=== PATIENT | male | born 1935 | race Caucasian/White ===

== ENCOUNTER 2017-10-18 10:16 | Observation (INO) | payer OTHER ==
[~2017-10-18] VITALS: Ht 172.7 cm; Wt 83.0 kg
[2017-10-18 10:20] VITALS: BP 172/72
[2017-10-18] MEDS ORDERED: LIPITOR10 MG PO (10:25)
[2017-10-18] MEDS ORDERED: LEVOTHYROXINE100 MC1 PO (10:25)
[2017-10-18] MEDS ORDERED: ATENOLOL-CHLOR1 EAC2 PO (10:26)
[2017-10-18] MEDS ORDERED: MEDROLDOSEPACK PO (10:27)
[2017-10-18 10:43] LABS: ABSOLUTE BASOPHILS 0.1 thou/uL (0.0-0.2); ABSOLUTE EOSINOPHILS 0.1 thou/uL (0.0-0.7); ABSOLUTE LYMPHOCYTES 3.1 thou/uL (0.8-5.3); ABSOLUTE NEUTROPHILS 7.4 thou/uL (1.6-8.1); BASOPHILS 0.6 %; EOSINOPHILS 0.7 %; HEMATOCRIT 44.3 % (42.0-52.0); HEMOGLOBIN 14.6 gm/dL (14.0-18.0); LYMPHOCYTES 26.3 %; MCH 29.8 pg (26.0-34.0); MCV 90.2 fL (80.0-100.0); MPV 8.8 fl. (7.2-11.1); NUCLEATED RBCS 0 /100WBC; PLATELET COUNT* 240 thou/uL (150-400); POLYS 63.4 %; RBC 4.91 mil/uL (4.50-6.00); RDW-CV 13.7 % (10.5-14.5); WBC 11.6 thou/uL (4.0-11.0)
[2017-10-18 10:50] LABS: URINE BILIRUBIN NEGATIVE (Negative); URINE BLOOD NEGATIVE (Negative); URINE CLARITY CLEAR; URINE COLOR YELLOW; URINE GLUCOSE-RANDOM NEGATIVE (Negative); URINE KETONES NEGATIVE (Negative); URINE LEUKOCYTES-REFLEX NEGATIVE (Negative); URINE NITRITE-REFLEX NEGATIVE (Negative); URINE PROTEIN NEGATIVE (Negative); URINE SPECIFIC GRAVITY 1.015 (1.005-1.030); URINE UROBILINOGEN 0.2 E.U./dl (0.2-1.0)
[2017-10-18 10:53] LABS: INR 1.1
[2017-10-18 10:54] LABS: ANION GAP 3 mmol/L (7-16); BUN 28 mg/dL (7-18); CALCIUM 8.4 mg/dL (8.5-10.1); CHLORIDE 101 mmol/L (98-107); CO2 35 mmol/L (21-32); CREATININE 1.4 mg/dL (0.6-1.3); GLUCOSE 114 mg/dL (70-99); POTASSIUM 3.5 mmol/L (3.5-5.1); SODIUM 139 mmol/L (136-145)
[2017-10-18 11:10] LABS: ALBUMIN 3.6 g/dL (3.4-5.0); ALKALINE PHOSPHATASE 56 U/L (46-116); NT-PRO BRAIN NAT PEPTIDE 415 pg/mL (<300); SGOT 18 U/L (15-37); SGPT 36 U/L (30-65); TOTAL BILIRUBIN 0.8 mg/dL (<0.1-1.0); TOTAL PROTEIN 7.3 g/dL (6.4-8.2); TROPONIN-I LEVEL <0.06 ng/mL (<0.06)
[2017-10-18 12:10] VITALS: BP 121/45
--- NOTE | 2017-10-18 16:00 | NUR ---
VSS, ASSUMED CARE OF THE PT FROM ED. ASSESSMENT PERFORMED AND CHARTED, FALL PRECAUTIONS IN PLACE AND CALL LIGHT IN REACH, PT IS ON RA AND IS TRACING SR/SB ON THE MONITOR, PT IS A&O4 AND UP STAND BY. PT DENIES ANY PAIN AND HIS GOAL IS TO NOT HAVE ANYMORE DIZZYS, PT IS ORTHO STAT NEG. WILL FOLLOW WITH PLAN OF CARE AND HOURLY ROUNDS COMPLETED AT THIS TIME.
[2017-10-18 16:08] VITALS: BP 144/60
--- NOTE | 2017-10-18 16:24 | EKG ---
[place] [address] ELECTROCARDIOGRAM REPORT Name: BRIGIDA LOUIS Room: [address] ADM IN .R.#: [id number] Admission: 10/18/17 Attend Phys: Maikel Martin MD Discharge: Date of : 37 Report #: [id number] THIS REPORT FOR: //name// [facility] ED Test Date: 2017-10-18 Test Time: 10:23:11 Pat Name: BRIGIDA LOUIS Department: Room: [facility] Gender: Recreation Activities Coordinator: Mamie WHITEHEAD : 1935 Requested By: Everette Mccallum Order Number: [id number] MD: Mayur Colorado Measurements Intervals [place] Rate: 54 P: 34 SC: 169 QRS: 15 QRSD: 100 T: 23 QT: 436 QTc: 414 Interpretive Statements Sinus bradycardia Compared to ECG 06/09/2007 17:28:15 No significant changes Electronically Signed On 10-18-2017 16:23:48 CDT by Mayur Colorado [email or web address] <ELECTRONICALLY SIGNED> By: Mayur Colorado MD, [facility] 10/18/17 1623 1023 1023 Mayur Colorado MD, [facility] /EPI
--- NOTE | 2017-10-18 17:03 | 2DMMODE ---
[place] [address] 2 D/M-MODE ECHOCARDIOGRAM Name: BRIGIDA LOUIS Room: [address] [place] [facility]#: [id number] Admission: 10/18/17 Attend Phys: Maikel Martin, Discharge: Date of : 37 Date of Service: 10/18/17 1703 Report #: [id number] THIS REPORT FOR: //name// APPROVED REPORT Study performed: 10/18/2017 15:26:11 EXAM: Comprehensive 2D, Doppler, and color-flow Echocardiogram Patient Location: In-Patient Room #: [facility] BSA: 1.97 HR: 54 bpm BP: 121/45 mmHg Other Information Study Quality: Good Indications Dizziness and Vertigo 2D Dimensions LVEF(%): 72.24 (>50%) IVSd: 10.40 (7-11mm) LVOT Diam: 20.49 (18-24mm) LVDd: 44.95 mm PWd: 11.81 (7-11mm) Ascending Ao: 27.51 (22-36mm) LVDs: 26.42 (25-40mm) Aortic Root: 24.19 mm Perry's LVEF: 72.24 % Volumes Left Atrial Volume (Systole) LA ESV Index: 21.70 mL/m2 Aortic Valve AoV Peak Demetrio.: 1.31 m/s AO Peak Gr.: 6.84 mmHg LVOT Max P.86 mmHg AO Mean Gr.: 3.70 mmHg LVOT Mean P.71 mmHg LVOT Max V: 0.98 m/s AO V2 VTI: 29.77 cm LVOT Mean V: 0.60 m/s REYNOLD (VTI): 2.96 cm2 LVOT V1 VTI: 26.74 cm Mitral Valve E/A Ratio: 0.91 MV Decel. Time: 198.91 [place] [address] 2 D/M-MODE ECHOCARDIOGRAM Name: BRIGIDA LOUIS Room: [address] [place] .R.#: [id number] Admission: 10/18/17 Attend Phys: Maikel Martin, Discharge: Date of : 37 Date of Service: 10/18/17 1703 Report #: [id number] MV E Max Demetrio.: 0.91 m/s MV PHT: 57.68 ms MVA (PHT): 3.81 cm2 TDI E/Lateral E': 10.11 E/Medial E': 11.38 Medial E' Demetrio.: 0.08 m/s Lateral E' Demetrio.: 0.09 m/s Pulmonary Valve PV Peak Demetrio.: 0.91 m/s PV Peak Gr.: 3.33 mmHg Tricuspid Valve TR Peak Gr.: 25.60 mmHg RVSP: 30.60 mmHg Left Ventricle The left ventricle is normal size. There is normal LV segmental wall motion. There is normal left ventricular wall thickness. Left ventricular systolic function is normal. LVEF is 55-60%. Transmitral Doppler flow pattern suggests impaired LV relaxation. Right Ventricle The right ventricle is normal size. The right ventricular systolic function is normal. Atria The left atrium size is normal. The right atrium size is normal. Aortic Valve The aortic valve is normal in structure. No aortic regurgitation is present. There is no aortic valvular stenosis. Mitral Valve The mitral valve is normal in structure. Mild mitral regurgitation. No evidence of mitral valve stenosis. Tricuspid Valve The tricuspid valve is normal in structure. Mild tricuspid regurgitation. The RVSP is _30.6 mmHg. Pulmonic Valve The pulmonary valve is normal in structure. There is no pulmonic valvular regurgitation[place] [address] 2 D/M-MODE ECHOCARDIOGRAM Name: BRIGIDA LOUIS Room: [address] [place] .#: [id number] Admission: 10/18/17 Attend Phys: Maikel Martin, Discharge: Date of : 37 Date of Service: 10/18/17 1703 Report #: [id number] The aortic root is normal in size. IVC is normal in size and collapses with >50% inspiration Pericardium There is no pericardial effusion. <Conclusion> The left ventricle is normal size. There is normal left ventricular wall thickness. Left ventricular systolic function is normal. LVEF is 55-60%. Transmitral Doppler flow pattern suggests impaired LV relaxation. Mild mitral regurgitation. Mild tricuspid regurgitation. The RVSP is _30.6 mmHg. IVC is normal in size and collapses with >50% inspiration <ELECTRONICALLY SIGNED> By: Jason Mcrae MD, FACC 10/18/17 170 02 02 Jason Mcrae MD, FACC /INF
[2017-10-18 20:00] VITALS: BP 125/51
[2017-10-19] VITALS (7 sets, daily range): BP systolic 118–135; BP diastolic 41–54
--- NOTE | 2017-10-19 05:26 | NUR ---
PT CARE ASSUMED AFTER REPORT. ASSESSMENT COMPLETE. SR ON MONITOR. DENIES PAIN. DENIES DIZZINESS. IVF INFUSING. UP AD BRIANA WITH STEADY GAIT. CALL LIGHT IN REACH. BED IN LOWEST POSITION. PROGRESSING TOWARDS GOALS.
[2017-10-19 11:00] LABS: CALCIUM 8.2 mg/dL (8.5-10.1); CREATININE 1.7 mg/dL (0.6-1.3); POTASSIUM 3.1 mmol/L (3.5-5.1)
[2017-10-19] MEDS ORDERED: ATENOLOL 50MG T50 M1 PO ×2 (13:50→13:52)
--- NOTE | 2017-10-19 14:12 | NUR ---
I HAVE REVIEWED STUDENT'S CHARTING.
--- NOTE | 2017-10-19 16:54 | NUR ---
CM ASSESSMENT: Pt is A&O. Resides at home with his . Independent with ADLs. Supportive family that is involved in POC. No DME. No hx of HH or SNF. Anticipate dc to home today, awaiting cardiology to come sign off. No needs.
--- NOTE | 2017-11-01 17:05 | CON ---
[address] [address] CONSULTATION Name: BRIGIDA LOUIS Room: [address] Sandra Hurd#: [id number] Admission: 10/18/17 Attend Phys: Maikel Martin MD Discharge: 10/19/17 Date of : 37 Report #: [id number] THIS REPORT FOR: //name// CC: Maikel Tejeda DATE OF SERVICE: 10/19/2017 HISTORY OF PRESENT ILLNESS: This is an 82-year-old male patient who was evaluated by me for any neurological etiology for the patient's dizziness. He indicated that he had 2 episodes of dizziness. During both these episodes, he was fully conscious. He was standing and he felt dizzy and he sat down. He felt better with this dizziness. He does not know what his blood pressure was because his blood pressure cuff has broken and he did not take his blood pressure. He did not know what his pulse was. There was no associated tonic-clonic activity and the dizziness was moderately severe. REVIEW OF SYSTEMS: Indicate that this patient was seen by Cardiology and they found bradycardia in this patient and they are readjusting his medication. He does have a history of hypertension, back problem with epidural injections, bronchitis. He denies any prior history of stroke. He denies any headache associated with this. The history about some unsteadiness is confusing in this patient. He had told previously that he may have been unsteady; to me he is not sure. Presently, he is not complaining of any new eye, ENT, cardiac, respiratory, GI, , musculoskeletal, constitutional, dermatological, hematological, psychiatric or endocrine symptom associated with present symptomatology. He does have some baseline symptoms as described above in multiple systems. His 14-point review of system was otherwise noncontributory. PAST MEDICAL HISTORY: Negative for stroke. FAMILY HISTORY: Negative for early age stroke. SOCIAL HISTORY: He does not smoke. He has prior history of smoking and he does not drink alcohol. PHYSICAL EXAMINATION: NEUROLOGIC: Indicates he is alert, responsive and able to follow simple and complex command. His speech, concentration, fund of knowledge and memory is at his baseline. Cranial nerve examination 2-12 is unremarkable. His strength, sensation, reflexes and tone is symmetrical. There is no cerebellar sign. I could not look at the patient's fundus. There is no meningeal sign. There is no carotid bruit. GENERAL: He is moderately built individual who does not have any dysmorphic features of eyes, ears and face. His vision [place] [address] CONSULTATION Name: BRIGIDA LOUIS Room: [address] Sandra Hurd#: [id number] Admission: 10/18/17 Attend Phys: Maikel Martin MD Discharge: 10/19/17 Date of : 37 Report #: [id number] EXTREMITIES: His pulses are difficult to feel. He has no edema, cyanosis or jaundice. CARDIAC: Presently does not appear to be showing any definite abnormality. RESPIRATORY: No respiratory difficulty or rhonchi was noticed. VITAL SIGNS: Blood pressure is 133/54, respirations 18, pulse is 87, temperature is 99. LABORATORY DATA: When he came in, his white count was 11.6 and estimated GFR was 39 and his potassium was only 3.1. He did have a carotid Doppler and CT scan, which was mostly unremarkable. He indicates that he had another episode in 2006, which was a similar episode. IMPRESSION: It is unlikely that the patient's symptoms are neurological in origin. I think more likely etiology is cardiac, especially because he had bradycardia and because of the symptoms this patient had. He also had some other abnormality, which could have predisposed him for the symptoms like hypokalemia as well as what appeared to be renal dysfunction. I will defer the evaluation and management of that to yourself and Cardiology. RECOMMENDATION: I discussed the situation with the patient and discussed with him that it is unlikely there is any neurological etiology for his symptoms. He wants to go home. I told them that I will like to do an MRI and MRA just to make sure, especially because he had symptom in 2006. If that is also unremarkable, then neurologically, I do not have anything specific to add and further management will be by Cardiology and the hospitalist and I will defer to them. If the MRI is unremarkable, I do not think any neurological workup is needed and from neurological perspective, he can be dismissed whenever Cardiology and hospitalist think he is ready to be dismissed from their perspective. Final decision in that regard will be made by them but from my perspective after the MRI is done and if it is okay, no more further neurological workup is recommended and we will suggest working and following up on his systemic causes. <ELECTRONICALLY SIGNED> By: Chris Bullard MD 11/01/17 1705 170 15Chris Bullard MD /nt
== END 2017-10-19 19:19 | disposition home or self-care (01) ==
LOC: M.ERS 10:16 → M.TBA-ER 11:22 → M.2W 11:22
PROVIDERS: Family Medicine; ADMIT Internal Medicine
DX: R42 Dizziness and giddiness (principal); R00.1 Bradycardia, unspecified; R05 Cough; E86.0 Dehydration; E03.9 Hypothyroidism, unspecified; N17.9 Acute kidney failure, unspecified; I12.9 Hypertensive chronic kidney disease with stage 1 through stage 4 chronic kidney disease, or unspecified chronic kidney disease; N18.9 Chronic kidney disease, unspecified; Z87.891 Personal history of nicotine dependence

== ENCOUNTER 2019-09-11 06:53 | Emergency (ER) | payer OTHER ==
[~2019-09-11] VITALS: Ht 172.7 cm; Wt 83.5 kg
[~2019-09-11 06:53] MED LIST: ATENOLOL 50MG T50 M1 PO; ATENOLOL-CHLOR1 EAC2 PO; LEVOTHYROXINE100 MC1 PO; LIPITOR10 MG PO; MEDROLDOSEPACK PO
[2019-09-11] MEDS ORDERED: MECLIZINE HCL25 M1 PO (07:02)
[2019-09-11] MEDS ORDERED: NORVASC 2.5 MG2.5 M1 PO (07:02)
[2019-09-11 07:56] LABS: ABSOLUTE BASOPHILS 0.1 thou/uL (0.0-0.2); ABSOLUTE EOSINOPHILS 0.1 thou/uL (0.0-0.7); ABSOLUTE LYMPHOCYTES 2.1 thou/uL (0.8-5.3); ABSOLUTE MONOCYTES 0.8 thou/uL (0.0-1.2); ABSOLUTE NEUTROPHILS 4.7 thou/uL (1.6-8.1); BASOPHILS 0.7 %; EOSINOPHILS 1.9 %; HEMATOCRIT 44.4 % (42.0-52.0); HEMOGLOBIN 14.8 gm/dL (14.0-18.0); LYMPHOCYTES 27.2 %; MCH 30.1 pg (26.0-34.0); MCHC 33.4 g/dL (28.0-37.0); MCV 90.2 fL (80.0-100.0); MONOCYTES 10.3 %; MPV 9.3 fl. (7.2-11.1); NUCLEATED RBCS 0 /100WBC; PLATELET COUNT* 218 thou/uL (150-400); POLYS 59.9 %; RBC 4.92 mil/uL (4.50-6.00); RDW-CV 14.2 % (10.5-14.5); WBC 7.9 thou/uL (4.0-11.0)
[2019-09-11 08:10] LABS: CALCIUM 8.2 mg/dL (8.5-10.1); CREATININE 1.2 mg/dL (0.6-1.3); POTASSIUM 4.7 mmol/L (3.5-5.1)
[2019-09-11 08:12] LABS: APTT 29.9 Seconds (25.0-31.3); PROTIME 10.6 Seconds (9.20-11.50)
[2019-09-11 08:21] LABS: ALBUMIN 3.3 g/dL (3.4-5.0); TOTAL BILIRUBIN 0.7 mg/dL (<0.1-1.0); TOTAL PROTEIN 7.2 g/dL (6.4-8.2)
[2019-09-11 08:27] LABS: URINE BILIRUBIN NEGATIVE (Negative); URINE BLOOD NEGATIVE (Negative); URINE CLARITY CLEAR; URINE COLOR YELLOW; URINE GLUCOSE-RANDOM NEGATIVE (Negative); URINE KETONES NEGATIVE (Negative); URINE LEUKOCYTES-REFLEX NEGATIVE (Negative); URINE NITRITE-REFLEX NEGATIVE (Negative); URINE PROTEIN NEGATIVE (Negative); URINE SPECIFIC GRAVITY 1.025 (1.005-1.030); URINE UROBILINOGEN 0.2 E.U./dl (0.2-1.0)
[2019-09-11] MEDS ORDERED: TRANSDERM-SCOP1 EACH TRANSDERM (09:17)
[2019-09-11 09:37] VITALS: BP 132/64
--- NOTE | 2019-09-11 16:44 | EKG ---
[place] [address] ELECTROCARDIOGRAM REPORT Name: BRIGDIA LOUIS Room: [facility]#: [id number] Admission: 09/11/19 Attend Phys: Discharge: 09/11/19 Date of : 37 Date of Service: 09/11/19 0755 Report #: [id number] THIS REPORT FOR: //name// [facility] ED Test Date: 2019-09-11 Test Time: 07:55:07 Pat Name: BRIGIDA LOUIS Department: Room: Gender: Dryerman/Woman: [place] : 1935 Requested By: Everette Mccallum Order Number: [id number] MD: Mayur Colorado Measurements Intervals [place] Rate: 73 P: 43 NC: 158 QRS: 13 QRSD: 101 T: 36 QT: 412 QTc: 454 Interpretive Statements Sinus rhythm Multiple ventricular premature complexes Compared to ECG 10/18/2017 10:23:11 Ventricular premature complex(es) now present Sinus bradycardia no longer present Electronically Signed On 09-11-2019 16:43:25 DIRECTORY CARRIER by Mayur Colorado [email or web address] <ELECTRONICALLY SIGNED> By: Mayur [place] MD, FACC 09/11/19 1643 0755 0755 Mayur Colorado MD, [facility] /EPI
== END 2019-09-11 09:37 | disposition home or self-care (01) ==
LOC: M.ERS 06:53
PROVIDERS: Family Medicine
DX: R42 Dizziness and giddiness (principal); I10 Essential (primary) hypertension; Z98.890 Other specified postprocedural states

== ENCOUNTER 2020-07-18 09:07 | Emergency (ER) | payer OTHER ==
[~2020-07-18] VITALS: Ht 172.7 cm; Wt 87.1 kg
[~2020-07-18 09:07] MED LIST changes: +MECLIZINE HCL25 M1 PO; +NORVASC 2.5 MG2.5 M1 PO; +TRANSDERM-SCOP1 EACH TRANSDERM
[2020-07-18 09:57] LABS: ABSOLUTE BASOPHILS 0.1 thou/uL (0.0-0.2); ABSOLUTE EOSINOPHILS 0.2 thou/uL (0.0-0.7); ABSOLUTE LYMPHOCYTES 2.3 thou/uL (0.8-5.3); ABSOLUTE MONOCYTES 0.7 thou/uL (0.0-1.2); ABSOLUTE NEUTROPHILS 5.5 thou/uL (1.6-8.1); BASOPHILS 0.9 %; EOSINOPHILS 2.2 %; HEMATOCRIT 42.1 % (42.0-52.0); LYMPHOCYTES 26.3 %; MCH 29.7 pg (26.0-34.0); MCHC 33.2 g/dL (28.0-37.0); MCV 89.5 fL (80.0-100.0); MONOCYTES 7.8 %; MPV 10.1 fl. (7.2-11.1); NUCLEATED RBCS 0 /100WBC; PLATELET COUNT* 186 thou/uL (150-400); POLYS 62.8 %; RDW-CV 13.7 % (10.5-14.5); WBC 8.8 thou/uL (4.0-11.0)
[2020-07-18 10:05] LABS: CALCIUM 8.6 mg/dL (8.5-10.1); CREATININE 1.5 mg/dL (0.6-1.3); POTASSIUM 4.3 mmol/L (3.5-5.1)
[2020-07-18 10:10] LABS: ALBUMIN 3.7 g/dL (3.4-5.0); TOTAL PROTEIN 7.2 g/dL (6.4-8.2)
[2020-07-18 10:52] LABS: URINE BILIRUBIN NEGATIVE (Negative); URINE BLOOD NEGATIVE (Negative); URINE CLARITY CLEAR; URINE COLOR YELLOW; URINE GLUCOSE-RANDOM NEGATIVE (Negative); URINE KETONES NEGATIVE (Negative); URINE LEUKOCYTES-REFLEX NEGATIVE (Negative); URINE NITRITE-REFLEX NEGATIVE (Negative); URINE PROTEIN NEGATIVE (Negative); URINE UROBILINOGEN 0.2 E.U./dl (0.2-1.0)
[2020-07-18] MEDS ORDERED: AUGMENTIN 875-1 EACH PO (11:49)
[2020-07-18 11:59] VITALS: BP 132/70
--- NOTE | 2020-07-19 09:38 | EKG ---
[place] [address] ELECTROCARDIOGRAM REPORT Name: BRIGIDA LOUIS Room: [facility]#: [id number] Admission: 07/18/20 Attend Phys: Discharge: 07/18/20 Date of : 37 Date of Service: 07/18/20 0917 Report #: [id number] THIS REPORT FOR: //name// [facility] ED Test Date: 2020-07-18 Test Time: 09:17:16 Pat Name: BRIGIDA LOUIS Department: Room: Gender: Manager Adobe: : 1935 Requested By: Jose Angel Jade Order Number: [id number] MD: Mayur [place] Measurements Intervals [place] Rate: 72 P: 73 SD: 146 QRS: 37 QRSD: 96 T: 65 QT: 405 QTc: 444 Interpretive Statements Sinus rhythm Ventricular trigeminy Compared to ECG 09/11/2019 07:55:07 No significant changes Electronically Signed On 07-19-2020 9:38:05 LINE TESTER by Mayur Colorado [email or web address] <ELECTRONICALLY SIGNED> By: Mayur [place] MD, [facility] 07/19/2038 6 6 Mayur Colorado MD, [facility] /EPI
== END 2020-07-18 12:00 | disposition home or self-care (01) ==
LOC: M.ERS 09:07
PROVIDERS: Emergency Medicine Emergency Medical Services
DX: J32.9 Chronic sinusitis, unspecified (principal); R42 Dizziness and giddiness; I10 Essential (primary) hypertension; Z98.890 Other specified postprocedural states; Z79.899 Other long term (current) drug therapy; Z20.828 Contact with and (suspected) exposure to other viral communicable diseases

== ENCOUNTER 2020-12-08 12:44 | Emergency (ER) | payer OTHER ==
[~2020-12-08] VITALS: Ht 172.7 cm; Wt 86.6 kg
[~2020-12-08 12:44] MED LIST changes: +AUGMENTIN 875-1 EACH PO
[2020-12-08] MEDS ORDERED: NORVASC5 MG PO (14:17)
[2020-12-08] MEDS ORDERED: IBUPROFEN 800800 M1 PO (17:14)
[2020-12-08] MEDS ORDERED: NORCO5 PO (17:14)
[2020-12-08 17:28] VITALS: BP 126/53
== END 2020-12-08 17:29 | disposition home or self-care (01) ==
LOC: M.ERS 12:44
DX: S76.812A Strain of other specified muscles, fascia and tendons at thigh level, left thigh, initial encounter (principal); I10 Essential (primary) hypertension; Z87.01 Personal history of pneumonia (recurrent); X50.9XXA Other and unspecified overexertion or strenuous movements or postures, initial encounter; Y93.89 Activity, other specified; Y92.89 Other specified places as the place of occurrence of the external cause; Y99.8 Other external cause status